=== PATIENT | male | born 1935 | race Two or more races ===

== ENCOUNTER 2017-02-06 11:45 | Emergency (ER) | payer MEDICAID, OTHER ==
[~2017-02-06] VITALS: Ht 172.7 cm; Wt 99.8 kg
[2017-02-06] MEDS ORDERED: MORPHINE SULFATE 4 MG/ML SYRG IV ONE (12:30)
[2017-02-06] MEDS ORDERED: SODIUM CHLORIDE 0.9% 1,000 ML IV ONE (12:30)
[2017-02-06] MEDS ORDERED: ONDANSETRON HCL 4 MG/2 ML VIAL IV ONE (12:30)
[2017-02-06 12:40] LABS: Albumin 3.1 g/dL (3.4-5.0); Anion Gap 7 (5-15); Aspartate Aminotransferase 26 U/L (15-37); BUN/Creatinine Ratio 17.9; Blood Urea Nitrogen 21 mg/dL (7-18); Calcium 8.3 mg/dL (8.5-10.1); Carbon Dioxide 25 mmol/L (21-32); Chloride 110 mmol/L (98-107); GFR African American 77 mL/min; GFR Non-African American 64 mL/min; Glucose 145 mg/dL (74-106); Potassium 4.4 mmol/L (3.5-5.1); Sodium 142 mmol/L (136-145)
[2017-02-06 12:45] LABS: Alkaline Phosphatase 151 U/L (45-117); Bilirubin, Total 0.7 mg/dL (0.2-1.0); Total Protein 6.8 g/dL (6.4-8.2)
[2017-02-06 12:50] LABS: Basophils # (auto) 0 uL; Basophils % (auto) 0.5 % (0.0-2.0); Eosinophils # (auto) 0 uL; Hematocrit 30.8 % (41.0-53.0); Hemoglobin 10.4 g/dL (13.5-17.5); Lymphocytes # (auto) 0.7 uL; Mean Corpuscular Hemoglobin 29.6 pg (28.0-32.0); Mean Corpuscular Hgb Conc. 33.8 g/dL (32.0-36.0); Mean Corpuscular Volume 87.5 fL (80.0-100.0); Monocytes # (auto) 0.2 uL; Monocytes % (auto) 6.9 % (0.0-12.0); Neutrophils # (auto) 1.6 uL; Neutrophils % (auto) 64.6 % (37.0-80.0); Platelet Count (auto) 320 10^3/uL (140-450); Red Cell Distribution Width 16.7 % (11.6-16.0); White Blood Cell 2.6 10^3/uL (4.4-10.8)
[2017-02-06] MEDS ORDERED: PRA1C PO (13:43)
[2017-02-06] MEDS ORDERED: POTA10TA34 PO (13:43)
[2017-02-06] MEDS ORDERED: OMEP20CA5 PO (13:43)
[2017-02-06] MEDS ORDERED: SIMV40TA96 PO (13:43)
[2017-02-06] MEDS ORDERED: TRIF0.27 PO (13:43)
[2017-02-06] MEDS ORDERED: LIDO4CRE12 EX (13:43)
[2017-02-06] MEDS ORDERED: WARF2TAB49 PO (13:43)
[2017-02-06 17:07] VITALS: BP 118/65
== END 2017-02-06 17:33 | disposition short-term general hospital (02) ==
LOC: ER 11:56
DX: R07.89 Other chest pain (principal); C18.9 Malignant neoplasm of colon, unspecified; C79.89 Secondary malignant neoplasm of other specified sites; K80.20 Calculus of gallbladder without cholecystitis without obstruction; K80.50 Calculus of bile duct without cholangitis or cholecystitis without obstruction; F17.210 Nicotine dependence, cigarettes, uncomplicated; Z86.73 Personal history of transient ischemic attack (TIA), and cerebral infarction without residual deficits; Z79.899 Other long term (current) drug therapy; Z51.11 Encounter for antineoplastic chemotherapy
CPT/HCPCS: 36415; 71250; 74176; 80053; 84484; 85025; 85379; 96361; 96374; 96375; 99291; J2270; J2405; J7030; 93005